=== PATIENT | male | born 1940 | race Caucasian/White ===

== ENCOUNTER 2021-07-25 06:45 | Inpatient (IN) | payer OTHER, MEDICARE ==
[2021-07-25 07:22] LABS: Protime INR 1.13
[2021-07-25] MEDS ORDERED: FENTANYL CITR 100 MCG/2 ML ONE (07:34)
[2021-07-25] MEDS ORDERED: ASPIRIN 81 MG CHEWABLE TABLET ONE (07:34)
[2021-07-25] MEDS ORDERED: ONDANSETRON 4 MG/2 ML VIAL ONE (07:34)
[2021-07-25 07:37] LABS: ALT/SGPT 27 U/L (12-78); AST/SGOT 15 U/L (15-37); Albumin 3.7 g/dL (3.4-5.0); Alkaline Phosphatase 74 U/L (45-117); BUN Blood Urea Nitrogen 20 mg/dL (7-18); Bicarbonate 28 mmol/L (21-32); Bilirubin Direct 0.1 mg/dL (0-0.2); Bilirubin Total 0.6 mg/dL (0.2-1.0); Glucose Level 161 mg/dL (74-106); Magnesium 2.3 mg/dL (1.8-2.4); NT PRO-BNP 110 pg/mL (<450); Potassium 3.5 mmol/L (3.5-5.1); Protein, Total 7.4 g/dL (6.4-8.2); Sodium Level 143 mmol/L (136-145); Troponin (Emerg Dept Use Only) < 0.02 ng/mL (0.0-0.045)
[2021-07-25 07:41] LABS: Absolute Lymphocytes (CBC) 1.8 K/uL (0.7-4.9); Basophils % 0.8 % (0-1.3); Hematocrit 41.9 % (39.6-49.0); Lymphocytes % 14.5 % (15.3-44.8); MPV 8.5 fL (7.6-11.3); RBC Red Blood Cell Count 4.63 M/uL (4.33-5.43)
[2021-07-25] MEDS ORDERED: NA CHLORIDE 0.9% 500 ML ONE (08:10)
--- NOTE | 2021-07-25 08:36 | RAD REPORT ---
EXAM DESCRIPTION: CT - Angio Aorta For Dissection - 07/25/2021 8:13 am CLINICAL HISTORY: Chest pain radiating to the back. Chest pain;Dyspnea COMPARISON: Abdomen Pelvis W/Wo Contrast dated 01/31/2021; Abdomen Pelvis W Contrast dated 020 TECHNIQUE: CT angiography of the aorta was performed with MIPs. All CT scans are performed using dose optimization technique as appropriate and may include automated exposure control or mA/KV adjustment according to patient size. FINDINGS: A left aortic arch is present with normal branching pattern of the great vessels.No acute aortic finding is seen such as aneurysm, penetrating ulcer or dissection. The celiac axis, SMA, ZAHRA and renal arteries are patent. No evidence of pulmonary embolism. Small hiatal hernia. Mild emphysema is present throughout the lungs. Mild interstitial lung infiltrate is seen in the left lung base. Small pleural based opacity is seen in the lateral aspect of the lingula measuring 17 mm. Small amount of left pleural fluid is evident. The liver demonstrates no focal mass or biliary dilatation.The spleen, pancreas, adrenal glands are w ithin normal limits for arterial phase imaging. Multiple large bilateral renal cysts are present the largest on the right measuring 18 cm. Left midpo le laterally there is a more complex appearing cortical lesion measuring 5.4 cm which has mildly incr eased in size since 01/31/2021 and also increased in size mildly since 08/12/2020. Although complex c yst is a possibility the internal appearance of the lesion is heterogenous. Recommend further evaluat ion of this with nonemergent follow-up MRI of the kidneys with contrast. No bowel obstruction, free fluid or abscess.Prostate gland is mildly prominent and projects into the bladder base.No pathologic enlarged lymphadenopathy identified.Small bilateral fat containing inguina l hernias. Diffuse osteopenia. Prominent lumbosacral degenerative spondylosis. IMPRESSION: No acute aortic finding is demonstrated. Small left pleural effusion and left lower lung opacity may represent infiltrate/ infection. Pleural based opacity in the lingula (17 mm) warrants followup assessment with CT chest in 6 months. Bilateral renal cysts are again seen. Complex cystic lesion involving the lateral left midpole shows slow interval growth over the last [address]. While complex cyst is favored, kishore mmend nonemergent MRI of the kidneys with contrast for follow-up evaluation.
[2021-07-25 08:42] LABS: SARS-COV-2 RT PCR NEGATIVE (NEGATIVE)
--- NOTE | 2021-07-25 08:49 | EDPHYS ---
Physician Documentation [facility] Name: Jose West Age: 80 yrs Sex: Male : 1940 Arrival Date: 07/25/2021 Time: 06:49 Bed 5 Private MD: ED Physician Jillian Giron HPI: 07/25 07:30 This 80 yrs old Male presents to ER via Wheelchair with complaints of Chest jr8 Pain/Breathing Difficulty. 07:31 The patient or guardian reports chest pain that is located primarily in the anterior jr8 chest wall, left. Onset: acutely, last night, and became persistent. The pain does not radiate. Associated signs and symptoms: Pertinent positives: shortness of breath. The chest pain is described as sharp. Duration: The patient or guardian reports multiple episodes, that are intermittent. Modifying factors: The symptoms are alleviated by nothing. the symptoms are aggravated by deep breath. Severity of pain: At its worst the pain was moderate in the emergency department the pain is unchanged. The patient has not experienced similar symptoms in the past. The patient has not recently seen a physician. Historical: - Allergies: 07:10 No Known Allergies; lp1 - Home Meds: 07:10 finasteride 5 mg oral tab 1 tab once daily [Active]; Triamterene-Hydrochlorothiazid lp1 Oral [Active]; atorvastatin 20 mg oral tab 1 tab once daily [Active]; terazosin 10 mg oral cap 1 cap once daily [Active]; amlodipine 5 mg tab twice a day [Active]; carvedilol 3.125 mg oral tab [Active]; aspirin 81 mg Oral TbEC 1 tab once daily [Active]; famotidine 20 mg Oral tab 1 tab once daily [Active]; - PMHx: 07:10 Kidney cysts; Prostate cancer; lp1 - PSHx: 07:10 hernia sx; back sx; knee sx; lp1 - Immunization history:: Adult Immunizations up to date, Client reports receiving the 2nd dose of the Covid vaccine. - Social history:: Smoking status: Patient denies any tobacco usage or history of. ROS: 07:31 Eyes: Negative for injury, pain, redness, and discharge, ENT: Negative for injury, jr8 pain, and discharge, Neck: Negative for injury, pain, and swelling, Abdomen/GI: Negative for abdominal pain, nausea, vomiting, diarrhea, and constipation, Back: Negative for injury and pain, MS/Extremity: Negative for injury and deformity, Skin: Negative for injury, rash, and discoloration, Neuro: Negative for headache, weakness, numbness, tingling, and seizure. 07:31 Cardiovascular: Positive for chest pain, Negative for edema, orthopnea, palpitations, paroxysmal nocturnal dyspnea. 07:31 Respiratory: Positive for shortness of breath, Negative for cough, sputum production, wheezing. Exam: 07:31 Eyes: Pupils equal round and reactive to light, extra-ocular motions intact. Lids and jr8 lashes normal. Conjunctiva and sclera are non-icteric and not injected. Cornea within normal limits. Periorbital areas with no swelling, redness, or edema. ENT: Nares patent. No nasal discharge, no septal abnormalities noted. Tympanic membranes are normal and external auditory canals are clear. Oropharynx with no redness, swelling, or masses, exudates, or evidence of obstruction, uvula midline. Mucous membranes moist. Neck: Trachea midline, no thyromegaly or masses palpated, and no cervical lymphadenopathy. Supple, full range of motion without nuchal rigidity, or vertebral point tenderness. No Meningismus. 07:31 Cardiovascular: Regular rate and rhythm with a normal S1 and S2. No gallops, murmurs, or rubs. Normal PMI, no JVD. No pulse deficits. 07:31 Abdomen/GI: Soft, non-tender, with normal bowel sounds. No distension or tympany. No guarding or rebound. No evidence of tenderness throughout. Back: No spinal tenderness. No costovertebral tenderness. Full range of motion. Skin: Warm, dry with normal turgor. Normal color with no rashes, no lesions, and no evidence of cellulitis. MS/ Extremity: Pulses equal, no cyanosis. Neurovascular intact. Full, normal range of motion. Neuro: Awake and alert, GCS 15, oriented to person, place, time, and situation. Cranial nerves II-XII grossly intact. Motor strength 5/5 in all extremities. Sensory grossly intact. 07:31 Constitutional: The patient appears alert, awake, uncomfortable. 07:31 Chest/axilla: Inspection: normal, Palpation: tenderness, that is mild, of the left lateral anterior chest, that partially reproduces the patient's complaints. 07:31 Respiratory: the patient does not display signs of respiratory distress, Respirations: tachypnea, that is mild, Breath sounds: are clear throughout, no bronchial sounds, no decreased breath sounds, no rales, rhonchi, no stridor, no wheezing. Vital Signs: 07:07 BP 148 / 81; Pulse 74; Resp 24; Pulse Ox 95% on R/A; Weight 113.4 kg (R); Height 6 ft. lp1 0 in. (182.88 cm); Pain 8/10; 07:27 BP 134 / 53; Pulse 69; Resp 25 S; Temp 97.8(TE); Pulse Ox 98% on 2 lpm NC; Pain 6/10; jl7 09:00 BP 117 / 60; Pulse 81; Resp 17; Pulse Ox 98% on 2 lpm NC; jl7 07:07 Body Mass Index 33.91 (113.40 kg, 182.88 cm) lp1 MDM: 06:51 Patient medically screened. jr8 08:47 The patient was given aspirin in the Emergency Department. Data reviewed: vital signs, 8 nurses notes, lab test result(s), EKG, radiologic studies, CT scan, plain films. Data interpreted: Pulse oximetry: on room air is 94 %. Interpretation: borderline. Counseling: I had a detailed discussion with the patient and/or guardian regarding: the historical points, exam findings, and any diagnostic results supporting the discharge/admit diagnosis, lab results, radiology results, the need for further work-up and treatment in the hospital. ED course: Discussed with patient that his left-sided lung pain and side pain appears to be secondary to pleurisy from pneumonia. Patient's pain has improved with medication but he continues to look uncomfortable and continues to remain tachypneic. As such I explained to patient that we better to put him into the hospital to continue to monitor him in his breathing status. Patient good with this at this time.. 07/25 07:02 Order name: Basic Metabolic Panel; Complete Time: :8 07/25 07:02 Order name: CBC with Diff; Complete Time: 07:42 8 07/25 07:02 Order name: LFT's; Complete Time: 8 07/25 07:02 Order name: Magnesium; Complete Time: : 07/25 07:02 Order name: NT PRO-BNP; Complete Time: 07:41 07/25 07:02 Order name: PT-INR; Complete Time: 07:30 07/25 07:02 Order name: Troponin (emerg Dept Use Only); Complete Time: 07:41 07/25 07:02 Order name: XRAY Chest (1 view); Complete Time: 10:16 07/25 07:41 Order name: CT Aorta for Dissection; Complete Time: 08:38 07/25 07:48 Order name: COVID-19/FLU A+B/RSV; Complete Time: 08:43 EDMS 07/25 07:02 Order name: EKG; Complete Time: 07:03 07/25 07:02 Order name: Cardiac monitoring; Complete Time: 07:04 07/25 07:02 Order name: EKG - Nurse/Tech; Complete Time: 07:04 07/25 07:02 Order name: IV Saline Lock; Complete Time: 07:04 07/25 07:02 Order name: Labs collected and sent; Complete Time: 07:04 07/25 07:02 Order name: O2 Per Protocol; Complete Time: 07:04 07/25 07:02 Order name: O2 Sat Monitoring; Complete Time: 07:04 07/25 08:58 Order name: Diet Heart Healthy; Complete Time: 08:59 jl7 Administered Medications: 07:08 Drug: Zofran (Ondansetron) 4 mg Route: IVP; Site: left antecubital; 7 07:28 Follow up: Response: No adverse reaction 7 07:10 Drug: fentaNYL (PF) 50 mcg Route: IVP; Site: left antecubital; jl7 07:28 Follow up: Response: No adverse reaction; Pain is decreased jl7 07:21 Drug: Aspirin Chewable Tablet 324 mg Route: PO; jl7 07:28 Follow up: Response: No adverse reaction 7 07:45 Drug: NS 0.9% 500 ml Route: IV; Rate: bolus; Site: left antecubital; jl7 08:57 Follow up: Response: No adverse reaction; IV Status: Completed infusion; IV Intake: jl7 500ml 08:57 Drug: LevaQUIN (levofloxacin) 750 mg Route: PO; jl7 10:27 Follow up: Response: No adverse reaction jl7 10:43 Drug: fentaNYL (PF) 50 mcg Route: IVP; Site: left antecubital; jl7 11:10 Follow up: Response: No adverse reaction; Pain is decreased jl7 Disposition: 07/26 08:48 Co-signature as Attending Physician, Jillian Giron MD I agree with the assessment and sp3 plan of care. Disposition Summary: 07/25/21 08:48 Hospitalization Ordered Hospitalization Status: Inpatient Admission 8 Provider: Sharita Stephens Location: Telemetry/MedSurg (Inpatient) jr8 Condition: Fair jr8 Problem: new jr8 Symptoms: have improved jr8 Bed/Room Type: Standard [facility] Room Assignment: 225(07/25/21 13:24) ss Diagnosis - Pneumonia, unspecified organism jr8 - Pleurisy jr8 - Pleural effusion in other conditions classified elsewhere jr8 - Dyspnea jr8 Forms: - Medication Reconciliation Form jr8 - SBAR form jr8 Signatures: Dispatcher [employer] EDMS Fatoumata Seo, RN RN ss Regla Marley RN RN lp1 Roberth Flor PA PA jr8 Clara Morales RN RN jl7 Jillian Giron MD MD sp3 Corrections: (The following items were deleted from the chart) 07/25 07:49 07:33 CORONAVIRUS+BRZ ordered. EDMS EDMS 13:23 08:48 jr8 13:24 13:23 224 [facility]
--- NOTE | 2021-07-25 08:49 | ER ---
Nurse's Notes [facility] Name: Jose West Age: 80 yrs Sex: Male : 1940 Arrival Date: 07/25/2021 Time: 06:49 Bed 5 Private MD: Diagnosis: Pneumonia, unspecified organism;Pleurisy;Pleural effusion in other conditions classified elsewhere;Dyspnea Presentation: 07/25 07:07 Chief complaint: Patient states: Reports pain to left upper chest, worse with movement lp1 and breathing; States cleaning ceiling yesterday and stretching arms; denies any injury. Coronavirus screen: At this time, the client does not indicate any symptoms associated with coronavirus-19. Ebola Screen: No symptoms or risks identified at this time. Initial Sepsis Screen: Does the patient meet any 2 criteria? No. Patient's initial sepsis screen is negative. Does the patient have a suspected source of infection? No. Patient's initial sepsis screen is negative. Risk Assessment: Do you want to hurt yourself or someone else? Patient reports no desire to harm self or others. Onset of symptoms was July 25, 2021. 07:07 Method Of Arrival: Wheelchair lp1 07:07 Acuity: AMY 3 lp1 Historical: - Allergies: 07:10 No Known Allergies; lp1 - Home Meds: 07:10 finasteride 5 mg oral tab 1 tab once daily [Active]; Triamterene-Hydrochlorothiazid lp1 Oral [Active]; atorvastatin 20 mg oral tab 1 tab once daily [Active]; terazosin 10 mg oral cap 1 cap once daily [Active]; amlodipine 5 mg tab twice a day [Active]; carvedilol 3.125 mg oral tab [Active]; aspirin 81 mg Oral TbEC 1 tab once daily [Active]; famotidine 20 mg Oral tab 1 tab once daily [Active]; - PMHx: 07:10 Kidney cysts; Prostate cancer; lp1 - PSHx: 07:10 hernia sx; back sx; knee sx; lp1 - Immunization history:: Adult Immunizations up to date, Client reports receiving the 2nd dose of the Covid vaccine. - Social history:: Smoking status: Patient denies any tobacco usage or history of. Screenin:00 Abuse screen: Denies threats or abuse. Denies injuries from another. Nutritional jl7 screening: No deficits noted. Tuberculosis screening: No symptoms or risk factors identified. Fall Risk IV access (20 points). Total Salazar Fall Scale indicates No Risk (0-24 pts). Assessment: 07:00 General: Appears in no apparent distress. uncomfortable, Behavior is cooperative, jl7 appropriate for age, anxious. Pain: Complains of pain in left lateral anterior chest and left breast Pain does not radiate. Pain currently is 8 out of 10 on a pain scale. Quality of pain is described as stabbing, Pain began 1 day ago. Is continuous. Neuro: Level of Consciousness is awake, alert, obeys commands, Oriented to person, place, time, situation, Speech is normal. Cardiovascular: Patient's skin is warm and dry. Rhythm is regular Chest pain is described as Pain is 8 out of 10 on a pain scale. quality is stabbing, is located in left anterior chest wall began 1 day ago episodes are continuous. Respiratory: Airway is patent Respiratory effort is even, labored, Respiratory pattern is symmetrical, tachypnea. GI: Abdomen is round distended. Derm: Skin is pink, warm \T\ dry. 08:00 Reassessment: Patient appears in no apparent distress at this time. Patient and/or jl7 family updated on plan of care and expected duration. Pain level reassessed. Patient is alert, oriented x 3, equal unlabored respirations, skin warm/dry/pink. Patient states symptoms have improved. 09:00 Reassessment: Patient appears in no apparent distress at this time. No changes from jl7 previously documented assessment. Patient and/or family updated on plan of care and expected duration. Pain level reassessed. Patient is alert, oriented x 3, equal unlabored respirations, skin warm/dry/pink. 10:00 Reassessment: Patient appears in no apparent distress at this time. No changes from jl7 previously documented assessment. Patient and/or family updated on plan of care and expected duration. Pain level reassessed. Patient is alert, oriented x 3, equal unlabored respirations, skin warm/dry/pink. 10:42 Reassessment: Pt reports increasing pain, requesting more pain medication, ERP notified jl7 and gave VO for 50 mcg Fentanyl IVP, pt medicated as ordered. Vital Signs: 07:07 BP 148 / 81; Pulse 74; Resp 24; Pulse Ox 95% on R/A; Weight 113.4 kg (R); Height 6 ft. lp1 0 in. (182.88 cm); Pain 8/10; 07:27 BP 134 / 53; Pulse 69; Resp 25 S; Temp 97.8(TE); Pulse Ox 98% on 2 lpm NC; Pain 6/10; jl7 09:00 BP 117 / 60; Pulse 81; Resp 17; Pulse Ox 98% on 2 lpm NC; jl7 07:07 Body Mass Index 33.91 (113.40 kg, 182.88 cm) lp1 ED Course: 06:49 Patient arrived in ED. wm 06:51 Roberth Flor PA is PHCP. jr8 06:51 Raheem Hightower MD is Attending Physician. jr8 07:00 Patient has correct armband on for positive identification. Placed in gown. Bed in low jl7 position. Call light in reach. Side rails up X 1. wreath and garland maker on. Pulse ox on. NIBP on. 07:03 Clara Morales RN is Primary Nurse. jl7 07:04 XRAY Chest (1 view) Sent. jl7 07:04 Inserted saline lock: 20 gauge in left antecubital area, using aseptic technique. Blood ms4 collected. 07:05 Initial lab(s) drawn, by ED staff, sent to lab. EKG done, by ED staff, reviewed by Roberth JONES. 07:10 Triage completed. lp1 07:12 XRAY Chest (1 view) In Process Unspecified. EDMS 07:29 Arm band placed on right wrist. jl7 07:41 Attending Physician role handed off by Raheem Hightower MD jr8 07:41 Jillian Giron MD is Attending Physician. jr8 08:12 CT Aorta for Dissection In Process Unspecified. EDMS 08:48 Sharita Stephens MD is Hospitalizing Provider. jr8 13:32 No provider procedures requiring assistance completed. Patient admitted, IV remains in jl7 place. intact, No redness/swelling at site. Administered Medications: 07:08 Drug: Zofran (Ondansetron) 4 mg Route: IVP; Site: left antecubital; jl7 07:28 Follow up: Response: No adverse reaction jl7 07:10 Drug: fentaNYL (PF) 50 mcg Route: IVP; Site: left antecubital; jl7 07:28 Follow up: Response: No adverse reaction; Pain is decreased jl7 07:21 Drug: Aspirin Chewable Tablet 324 mg Route: PO; jl7 07:28 Follow up: Response: No adverse reaction jl7 07:45 Drug: NS 0.9% 500 ml Route: IV; Rate: bolus; Site: left antecubital; jl7 08:57 Follow up: Response: No adverse reaction; IV Status: Completed infusion; IV Intake: jl7 500ml 08:57 Drug: LevaQUIN (levofloxacin) 750 mg Route: PO; jl7 10:27 Follow up: Response: No adverse reaction jl7 10:43 Drug: fentaNYL (PF) 50 mcg Route: IVP; Site: left antecubital; jl7 11:10 Follow up: Response: No adverse reaction; Pain is decreased jl7 Intake: 08:57 IV: 500ml; Total: 500ml. jl7 Outcome: 08:48 Decision to Hospitalize by Provider. jr8 13:32 Admitted to Tele accompanied by [facility], via wheelchair, room 225, with chart, Report jl7 called to MYRNA Rees 13:32 Condition: stable 13:32 Discharge instructions given to patient, family, Instructed on the need for admit, Demonstrated understanding of instructions. 13:54 Patient left the ED. jl7 Signatures: Dispatcher [employer] EDRegla Us, RN RN lp1 Roberth Flor PA PA jr8 Clara Morales RN RN jl7 Saba Quintana Mikaela RN RN ms4
[2021-07-25] MEDS ORDERED: levoFLOXacin 750 MG TAB ONE (09:19)
--- NOTE | 2021-07-25 09:54 | RAD REPORT ---
EXAM DESCRIPTION: RAD - Chest Single View - 07/25/2021 7:12 am CLINICAL HISTORY: CHEST PAIN Chest pain. COMPARISON: CHEST SINGLE VIEW dated 12/03/2013; CHEST SINGLE VIEW dated 12/02/2013; CHEST PA AND LAT 2 V IEW dated 05/20/2012; CHEST PA AND LAT 2 VIEW dated 01/22/2008 FINDINGS: Portable technique limits examination quality. Mild interstitial pulmonary edema. The heart is mildly enlarged in size. No displaced fractures. IMPRESSION: Mild CHF.
[2021-07-25] MEDS ORDERED: ALBUTEROL 2.5 MG/3 ML NEB SOL NEB PRN (14:20)
[2021-07-25] MEDS ORDERED: IPRATROPIUM BROM 0.5MG/2.5ML NEB PRN (14:20)
[2021-07-25] MEDS ORDERED: ONDANSETRON 4 MG/2 ML VIAL IV PRN (14:20)
[2021-07-25] MEDS: MORPHINE 4 MG/ML SYR IV PRN ×2 (15:10→19:58)
[2021-07-25] MEDS: ENOXAPARIN 40 MG/0.4 ML SQ SCH (15:11)
[2021-07-25 15:56] VITALS: BMI 33.9
[2021-07-25] MEDS ORDERED: INFLUENZA VACCINE (for 6+ mo) 0.5 ML DOSE IMVAC ONE (18:00)
[2021-07-26] MEDS: MORPHINE 4 MG/ML SYR IV PRN ×2 (01:24→06:27)
--- NOTE | 2021-07-26 04:20 | HP ---
Date of Admission: 07/25/2021 Chief Complaint: Chest pain. History Of Present Illness: This is an 80-year-old male patient who was working around his house yes terday, did not have any fall or injury and all of a sudden started to have left-sided chest pain in the lateral chest wall area. No rash. He thinks he might have had low-grade fever last night. His pain has been intermittent, mostly on, then off as he describes and pain does tend to get worse with deep breathing. He has little cough, not coughing up any mucus. After his symptoms got worse, he ca me into the emergency room today after he was evaluated in the ER and was contacted requesting admiss ion to the hospital. When I saw him this evening, he was feeling much better compared to earlier tojorge alberto ay. Allergies: NO KNOWN ALLERGIES. Medications: 1.Amlodipine 5 mg 2 times a day. 2.Aspirin 81 mg daily. 3.Atorvastatin 20 mg daily. 4.Carvedilol 3.125 mg 2 times a day. 5.Famotidine 20 mg daily as needed for heartburn, indigestion. 6.Finasteride 5 mg daily. 7.Triamterene/hydrochlorothiazide 37.5/25 mg, takes 1 tablet by mouth daily in morning. 8.Terazosin 10 mg daily at bedtime. Review of Systems: Cardiovascular: As mentioned above. Respiratory: As mentioned above. All other systems reviewed and negative. Past Medical History: Significant for hypertension, hyperlipidemia, which is mixed, gastroesophageal reflux disease, prostate cancer, and has not received any treatment so far for it, osteoarthritis at multiple sites and skin cancer. Also, chronic kidney disease. Past Surgical History: Tonsillectomy, hernia repair and prostate biopsy, back surgery, knee surgery. Family History: Brother had thyroid cancer, sister had breast cancer and heart disease. Social History: Prior history of smoking, not at present time. Use of alcohol, negative. Immunization History: Patient had his first dose of COVID-19 vaccine on December 27, 2020 and second do se on January 17, 2021. Physical Examination: Vital Signs: Temperature 98.6, pulse 86, respiratory rate 16, blood pressure 157/70, oxygen saturati on 95%, height 6 feet, weight 250 pounds. General: Awake, alert, oriented, not in distress. HEENT: Head atraumatic, normocephalic. Conjunctivae nonerythematous. Sclerae white. Mouth, no thr ush or edema noted. Ears/Nose, no mass, lesion, discharge noted. Neck: Supple. No JVD, lymph nodes, bruit, thyromegaly noted. Lungs: Bilateral good equal air entry. Clear to auscultation except diminished air entry in the lef t lower lung field. Not using accessory muscles of respiration. Heart: Normal heart sounds, no murmur or gallop. Abdomen: Soft, bowel sounds normal. No guarding, rigidity, tenderness, mass, hepatosplenomegaly, dis tention, or bruit noted. Extremities: No leg edema. No calf tenderness. Skin: No rash, ulcer, cellulitis. Lymphatics: No lymph node enlargement in neck, supraclavicular, infraclavicular region. Neuro: No focal neurological deficit. Chest: Unremarkable. External Genitalia: Deferred. Rectal: Deferred. Laboratory Data: White count 12.7, hemoglobin 14, platelets . Sodium 143, potassium 3.5, chloride 108, bicarb 28, BUN 20, creatinine 1.33 kg. EGFR 51, glucose 161. Liver function tests unr emarkable. Troponin less than 0.02 x2. Influenza A and B, RSV and COVID-19 test negative. CAT scan of the chest per PE protocol negative for pulmonary embolism, but shows evidence of pneumoni a. Impression: 1.Pneumonia. 2.Pleurisy. 3.Chronic kidney disease, stage IIIA. 4.Hypertension. 5.Mixed hyperlipidemia. 6.Gastroesophageal reflux disease. Plan: Admit patient to hospital for further evaluation and management of this problem. The patient is appropriate for inpatient and is expected to spend 2 midnights in hospital. Currently, he is on 2 L nasal cannula oxygen. We will continue that. Hopefully, we can wean off oxygen, maybe by tomorro w. Continue current antibiotic, which is Levaquin. Continue DVT prophylaxis. Home medications will be continued per order and ambulation was encouraged. I will see him tomorrow for followup and deta ils and plan of treatment discussed with him. JOHANNY/MODL Voice ID: [id number]
[2021-07-26 05:51] LABS: Absolute Lymphocytes (CBC) 1.2 K/uL (0.7-4.9); Basophils % 0.6 % (0-1.3); Hematocrit 37.8 % (39.6-49.0); Lymphocytes % 9.9 % (15.3-44.8); MPV 7.9 fL (7.6-11.3); RBC Red Blood Cell Count 4.21 M/uL (4.33-5.43)
[2021-07-26 06:20] LABS: Potassium 3.5 mmol/L (3.5-5.1)
[2021-07-26] MEDS: HYDROCODONE/APAP 5/325 MG TAB PO SCH ×2 (07:47→20:43)
[2021-07-26] MEDS ORDERED: Levofloxacin500mg IV 500 MG/100 ML BAG IV SCH (09:00)
[2021-07-26] MEDS: ACETAMINOPHEN 500 MG TAB PO PRN (13:37)
[2021-07-26] MEDS: ENOXAPARIN 40 MG/0.4 ML SQ SCH (17:01)
[2021-07-26] MEDS ORDERED: PNEUMOCOCCAL VACCINE 0.5 ML IMVAC ONE (18:00)
[2021-07-26] MEDS: AMLODIPINE 5 MG TAB PO SCH (20:45)
[2021-07-26] MEDS ORDERED: ATORVASTATIN 20 MG TAB PO SCH (21:00)
--- NOTE | 2021-07-27 00:22 | PN ---
Date of Progress Note: 07/26/2021 Subjective: The patient was seen this morning for followup. No new complaints or problems reported by him. His left-sided pleuritic chest pain is better. Objective: VITAL SIGNS: Reviewed. HEENT: Examination unremarkable. LUNGS: Clear to auscultation. Diminished air entry in the left lung base, not in respiratory distre ss. HEART: Heart sounds normal. ABDOMEN: Soft, bowel sounds normal. No guarding, rigidity, tenderness, distention. EXTREMITIES: No leg edema. Laboratory Data: White count 11.8, hemoglobin 12.7, platelets 266. Sodium 139, potassium 3.5, chlor holley 105, bicarb 26, BUN 29, creatinine 1.27, glucose 130. Impression: 1.Pneumonia. 2.Hypertension. 3.Hyperlipidemia. 4.Anemia, unspecified. Plan: We will continue current antibiotics. Continue current pain medication. We will start him on ibuprofen per order, and I will see him tomorrow for followup. Ambulation was encouraged, possible discharge to go home tomorrow depending on his condition. JOHANNY/MODL Voice ID: [id number] Report ID: [id number]
[2021-07-27] MEDS: ACETAMINOPHEN 500 MG TAB PO PRN (04:21)
[2021-07-27 04:42] VITALS: O2SAT 91
[2021-07-27] MEDS ORDERED: ALBUTEROL INHALER 60 PUFF/8 GM IH SCH (08:00)
[2021-07-27] MEDS ORDERED: FINASTERIDE 5 MG TAB PO SCH (09:00)
[2021-07-27] MEDS ORDERED: ASPIRIN EC 81 MG TAB PO SCH (09:00)
[2021-07-27] MEDS ORDERED: FAMOTIDINE 20 MG TAB PO SCH (09:00)
[2021-07-27] MEDS ORDERED: MAXZIDE (HCTZ 25/TRIAMTERENE 37.5MG) TAB PO SCH (09:00)
[2021-07-27] MEDS ORDERED: TERAZOSIN HCL 5 MG CAP PO SCH (09:00)
[2021-07-27] MEDS ORDERED: carvediloL 3.125 MG TAB PO SCH (09:00)
[2021-07-27] MEDS ORDERED: PNEUMOCOCCAL VACCINE 0.5 ML IMVAC ONE (09:05)
[2021-07-27] MEDS: HYDROCODONE/APAP 5/325 MG TAB PO SCH (09:08)
[2021-07-27] MEDS: AMLODIPINE 5 MG TAB PO SCH (09:09)
[2021-07-27 09:12] VITALS: BP 142/65
[2021-07-27 09:14] VITALS: TEMP 99
--- NOTE | 2021-07-28 07:24 | DS ---
Date of Discharge: 07/27/2021 History Of Present Illness: The patient was seen this morning for followup. No new complaints or pr oblems reported by the patient. Lying in bed, not in distress. His pleuritic chest pain is much bet ter than before. Physical Examination: Vital Signs: Reviewed. HEENT: Unremarkable. Lungs: Clear to auscultation. Heart: Sounds normal. Abdomen: Soft. Bowel sounds normal. No guarding, rigidity, tenderness, distention. Extremities: No leg edema. Laboratory Data: Upon admission; white count 12.7, hemoglobin 14, platelets 301. Yesterday; white c ount 11.8, hemoglobin 12.7, platelets 266. Upon admission; sodium 143, potassium 3.5, chloride 108, bicarb 28, BUN 20, creatinine 1.33, glucose 161. Liver function tests unremarkable. Troponin less t echeverria 0.02 x3. Yesterday; BUN 29, creatinine 1.27, sodium 139, potassium 3.5, chloride 105, bicarb 26, glucose 130. Hospital Course: An 80-year-old pleasant male patient, admitted to the hospital with complaints of c hest pain. Please see dictated H and P for more information. The patient was admitted to the hospit al after evaluation in the emergency room with left-sided chest pain. Further evaluation in the [facility] room including CAT scan revealed that the patient did not have any pulmonary embolism, but he h ad pneumonia and small pleural effusion on the left side. He was admitted to the hospital. IV antib iotic, Levaquin was given and pain medication was started. Home medications continued. The patient did require oxygen 2 L per minute nasal cannula at the beginning. We were able to wean off his oxyge n this morning. When I saw him, he was on 1 L of oxygen per nasal cannula. Oxygen was discontinued and his room air oxygen saturation was 91%. The patient was discharged to go home in stable conditio n with following discharge medication and instructions. Discharge Diagnoses: 1.Pneumonia. 2.Pleural effusion, left, small. 3.Pleurisy. 4.Chronic kidney disease, stage 3A. 5.Hypertension. 6.Mixed hyperlipidemia. 7.Gastroesophageal reflux disease. Discharge Medications And Instructions: 1.Continue prior home medications. 2.Take Levaquin 500 mg daily for 1 week. 3.Follow up at my office on 08/02/2021 at 10 a.m. 4.Albuterol inhaler 2 puffs by mouth 3 times a day. 5.Use haza-vie-vhoqhpw Advil 200 mg, take 2 tablets by mouth 3 times a day after meal for 1 week. JOHANNY/MODL Voice ID: [id number] Report ID: [id number]
== END 2021-07-27 09:48 | disposition home or self-care (01) | DRG 195 ==
LOC: ER 06:45 → ERHOLD 10:43 → 2ND 13:32
PROVIDERS: ADMIT Internal Medicine; ATTEND Internal Medicine
DX: J18.9 Pneumonia, unspecified organism (principal); I12.9 Hypertensive chronic kidney disease with stage 1 through stage 4 chronic kidney disease, or unspecified chronic kidney disease; N18.31 Chronic kidney disease, stage 3a; M19.90 Unspecified osteoarthritis, unspecified site; E78.2 Mixed hyperlipidemia; D64.9 Anemia, unspecified; K21.9 Gastro-esophageal reflux disease without esophagitis; E78.5 Hyperlipidemia, unspecified; R09.1 Pleurisy; Z79.82 Long term (current) use of aspirin; Z79.899 Other long term (current) drug therapy; Z85.46 Personal history of malignant neoplasm of prostate; Z85.828 Personal history of other malignant neoplasm of skin; Z20.822 Contact with and (suspected) exposure to COVID-19; Z23 Encounter for immunization
CPT/HCPCS: 0241U; 36415; 71045; 71275; 74175; 80048; 80076; 82947; 83735; 83880; 84484; 85025; 85610; 90471; 90732; 93005; 94760; 96361; 96374; 96375; 99285; J1650; J2405; J3010; J7040; Q9967

== ENCOUNTER 2023-04-27 08:48 | Day surgery (SDC) | payer OTHER, MEDICARE ==
[2023-04-27] MEDS ORDERED: Ringers Lactate 1,000 ML IV ONE (09:20)
[2023-04-27] MEDS ORDERED: LIDOCAINE HCL/EPINEPHRINE 20 ML MDV ONE (11:15)
[2023-04-27] MEDS ORDERED: FENTANYL CITR 100 MCG/2 ML ONE (11:34)
[2023-04-27] MEDS ORDERED: propofoL 200 MG/20 ML VIAL IV ONE (11:34)
[2023-04-27] MEDS ORDERED: LIDOCAINE 2% MPF 5 ML VIAL ONE (11:35)
[2023-04-27] MEDS ORDERED: ONDANSETRON 4 MG/2 ML VIAL ONE (11:35)
[2023-04-27] MEDS ORDERED: GLYCOPYRROLATE 0.2 MG/ML SYR ONE (13:01)
--- NOTE | 2023-04-27 13:25 | EKG ---
Test Date: 2023-04-26 Test Time: 15:40:35 Gum Cook: OCHOA MEASUREMENT RESULTS: Intervals: Rate: 64 TX: 188 QRSD: 96 QT: 406 QTc: 418 [place]: P: 60 TX: 188 QRS: 32 T: 54 INTERPRETIVE STATEMENTS: Normal sinus rhythm Normal ECG Compared to ECG 07/25/2021 07:00:40 Myocardial infarct finding no longer present Electronically Signed On 04-27-23 13:24:25 CDT by Rayray De Souza
--- NOTE | 2023-04-27 13:43 | P.OP ---
Cota: NONE,NONE Preoperative diagnosis: Neoplasm uncertain behavior, suspicious for malignancy Postoperative diagnosis: Squamous cell carcinoma Primary procedure: Wide local excision with margins, 3 cm x 3 cm Secondary procedure: Closure by local tissue rearrangement Anesthesia: General via LMA Estimated blood loss: 10 mL Specimen: Left neck, suture 12:00 Findings: Negative margins on frozen section Operative Technique: After adequate plane of anesthesia, the head was turned towards the right for exposure of the left neck. There was a 2 cm round firm mass located behind the earlobe on the upper portion of the neck. The skin surrounding this was injected with 6 and half milliliters of 1% lidocaine with epinephrine. The ear, neck and left face were prepped with Betadine and draped in a sterile fashion. A 5 mm margin was designed around the gross edge of the tumor and a 15 blade scalpel was used to incise through the skin and subcutaneous tissues on the planned incision. A suture was placed on the anteriormost aspect of the lesion, indicating 12:00. A similar suture was placed on the patient aspect of the wound. Bovie electrocautery was then used to incise the subcutaneous tissues, taking care to stay deep to the tumor. After complete removal, the specimen was sent to pathology for frozen section analysis. The resulting defect measured 3 x 3.1cm. There was a small to moderate size blood vessel with an adjacent lymph node in the center of the surgical defect. Due to concern for malignancy, this central lymph node was carefully dissected and removed. The blood vessel was clamped and 5 to avoid bleeding. This lymph node was not specifically enlarged but was easy to remove and given the size of the mass and rapid development, I was concerned about potential risk for metastases. This lymph node was sent for permanent section only. After margins were confirmed negative, the surrounding areas were widely undermined using Bovie electrocautery. A rotational flap was created by incising the skin along an existing skin crease of the neck. This 3 x 3 cm triangle based inferiorly and anteriorly was then rotated into the wound. A small burrows triangle was excised on the superior posterior aspect as well as an additional burrows triangle removed from the posterior aspect of the earlobe. This flap was then secured in a deep fashion using 3-0 Vicryl sutures. The skin was closed in a running fashion using 5-0 fast absorbing gut. After cleaning of the skin, triple antibiotic ointment was applied to the incision and a pressure dressing was applied using gauze and Medipore tape. The procedure was concluded and the patient was returned to care of anesthesia for awakening extubation in the operating room which proceeded without difficulty. Complications: None Implants: None Fluids & blood products: See anesthesia record Transferred to: Recovery Room Condition: Good
[2023-04-27 14:56] VITALS: BP 134/44; TEMP 96.8; O2SAT 94
== END 2023-04-27 14:50 | disposition home or self-care (01) ==
LOC: OR 08:48
PROVIDERS: ATTEND Otolaryngology
PROC: 07B20ZX Excision of Left Neck Lymphatic, Open Approach, Diagnostic (ICD-10-PCS; 2023-04-27)
PROC: 0HX4XZZ Transfer Neck Skin, External Approach (ICD-10-PCS; principal; 2023-04-27 10:15)
DX: C44.42 Squamous cell carcinoma of skin of scalp and neck (principal)
CPT/HCPCS: 93005; 88331; 88332; 88305; 14040; 38500; J2704; J2001; J3010; J2405; J7120

== ENCOUNTER 2023-07-17 05:43 | Day surgery (SDC) | payer OTHER, MEDICARE ==
[2023-07-09 11:51] LABS: Absolute Lymphocytes (CBC) 1.6 K/uL (0.7-4.9); Hematocrit 38.1 % (39.6-49.0); Lymphocytes % 19.5 % (15.3-44.8); MCV 89.2 fL (80-100); MPV 8.1 fL (7.6-11.3); Platelets 238 thou/uL (152-406); RBC Red Blood Cell Count 4.27 M/uL (4.33-5.43)
--- NOTE | 2023-07-09 11:52 | RAD REPORT ---
EXAM DESCRIPTION: RAD - Chest Pa And Lat (2 Views) - 07/09/2023 11:43 am CLINICAL HISTORY: Pre op pending urolift/Spaceoar gel insertion Chest pain. COMPARISON: Chest Pa And Lat (2 Views) dated 01/05/2022; Chest Pa And Lat (2 Views) dated 09/08/2021; C hest Single View dated 07/25/2021; CHEST SINGLE VIEW dated 12/03/2013 TECHNIQUE: PA and lateral views of the chest were obtained. FINDINGS: The lungs are hyperexpanded compatible with COPD. The heart is upper limit of normal in si ze. No fracture or aggressive bony process. IMPRESSION: COPD without acute process identified.
[2023-07-09 11:53] LABS: Protime INR 1.09
[2023-07-09 12:05] LABS: Potassium 3.2 mEq/L (3.5-5.1)
[2023-07-17] MEDS ORDERED: Ringers Lactate 1,000 ML IV ONE (06:25)
[2023-07-17] MEDS ORDERED: SUGAMMADEX SODIUM 200 MG/2 ML VIAL IV ONE (07:24)
[2023-07-17] MEDS ORDERED: SUCCINYLCHOLINE 20 MG/ML (10 ML) IV ONE (07:24)
[2023-07-17] MEDS ORDERED: propofoL 200 MG/20 ML VIAL IV ONE (07:25)
[2023-07-17] MEDS ORDERED: LIDOCAINE 1% MPF 5 ML VIAL ONE (07:25)
[2023-07-17] MEDS ORDERED: FENTANYL CITR 100 MCG/2 ML ONE (07:25)
[2023-07-17] MEDS: CEFAZOLIN SODIUM 2 GM/VIAL ONE ×2 (07:32→07:38)
[2023-07-17] MEDS ORDERED: CODEINE 30MG/APAP 300MG TAB PO PRN (07:36)
[2023-07-17] MEDS ORDERED: ONDANSETRON 4 MG/2 ML VIAL ONE (07:53)
[2023-07-17] MEDS ORDERED: dexAMETHasone 10 MG/ML VIAL ONE (07:53)
[2023-07-17] MEDS ORDERED: EPHEDRINE SULF 50 MG/ML VIAL ONE (07:54)
[2023-07-17 08:58] VITALS: O2SAT 92
[2023-07-17 10:04] VITALS: BP 146/55; TEMP 97.3
--- NOTE | 2023-07-18 08:14 | OP ---
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 2.Benign prostatic hypertrophy with lower urinary tract obstruction and symptoms. 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 2.Benign prostatic hypertrophy with lower urinary tract obstruction and symptoms. 3.Meatal stenosis. Principal Procedures: 1.Transrectal ultrasound-guided SpaceOAR gel insertion. 2.Prostatic urethral lift/UroLift with 7 implants placed. 3.Meatal dilation using sounds. Indication For Procedure: Mr. West is an 82-year-old gentleman, former patient of dustin Vizcarra s post prostate biopsy in 2017 revealing [place] 3+3 adenocarcinoma of the prostate in 5 cores with P SA that declined from 12 down to 8.8 on finasteride, but subsequently began to rise, ultimately to 11 .1 as of 01/22/2023. Repeat PSA returned 9.74, and adjusted for use of the finasteride, his actual P SA was likely closer to 20. As a result, because he had intermediate risk bordering on high risk pro state cancer, he was counseled on the potential benefit to surgical therapy to manage his obstruction and radiation therapy to manage the prostate cancer. He elected to proceed with radiation therapy, and was a reasonable candidate for the UroLift to relieve his obstructive symptoms. Procedure In Detail: The patient was consented in the preoperative holding area before being transfe rred to the operative suite where general anesthesia was induced. He was initially placed in the hig h lithotomy position, padded and secured to the table appropriately. Ancef 2 g was given for IV anti microbial prophylaxis, and pneumoboots were provided for DVT prophylaxis. His genitalia were elevate d out of the perineal region using an Ioban drape, and his perineal area was prepped with Betadine. The SpaceOAR needle was then inserted via his perineal midline under ultrasound guidance into the spa ce in the prerectal fat beneath the Denonvilliers fascia. Of note, the transrectal ultrasound probe had been placed via his anus into his rectum with ease prior to prepping the perineum with Betadine, and the prostate was visualized in its entirety from apex and perineal region to the base and seminal vesicles. As a result, having used the ultrasound to guide the needle through the perineal region a nd through the urogenital diaphragm appropriately into the mid zone of the prostate from retirement the distance from the apex to the base, I then aspirated and received no blood. I then hydrodissected an d the tissue did evenly distribute itself within the prerectal fat plane. As a result, we then switc hed the saline injection syringe with the SpaceOAR gel component, and then under direct visualization with ultrasound, I injected the SpaceOAR gel and observed it create a nice space between the base of the prostate and the rectum, though the majority of the gel did seem to fall off to the right latera l side of the prostate. There was still significant space created on the left side. As a result, I removed the needle and the patient was then taken out of the high lithotomy position and repositioned in standard lithotomy. His genitalia were prepped with Hibiclens and he was draped in standard [facility] ion in preparation for the UroLift. The case was then begun using a 20-Maori UroLift obturator and sheath to attempt to enter the meatus, but it was thwarted due to the presence of meatal stenosis. S o, I thus utilized urethral sounds to dilate his meatus and fossa navicularis to 26-Maori before the n reinserting the 20-Maori UroLift visual obturator and sheath via his urethra and into his bladder with ease. The prostate was noted to have significant interdigitating lateral lobar hypertrophy, but no significant elevated median bar or intravesically projecting median lobe. There was some intrave sical projection of the lateral lobes. As a result, I then switched the visual obturator for a UroLi ft implant and delivery device and first targeted the left side of the prostate at the base of the bl adder at around the 1 to 2 o'clock position. I advanced the scope to about 2 cm distal to the bladde r neck and angled the scope about 15 degrees laterally before pulling the trigger and delivering the needle through the substance of the prostate. I then angled it an additional 15-20 degrees, dropping my hand to elevate the tissue before pulling the trigger a second time and partially retracting the needle and leaving the capsular tab. A third pull of the trigger did completely retract the needle a nd I then advanced the scope back toward the midline and 2-3 mm toward the bladder neck until the whi te line of the monofilament was centered in the delivery bay. I then pulled the trigger a fourth reva e, tailoring the suture and applying the urethral end piece, which did invaginate nicely into the sub stance of the prostate with a nice rim of prostate tissue between the implant and the entry into his bladder. Having placed that implant nicely, I then turned my attention to the patient's right side a fter advancing the scope back into the bladder and switching for a new implant. I placed a similar i mplant on the right side, but this time with more of an upward angle to the placement of the implant in order to lift and lateralize a more significant degree of lateral to median lobar projection, I pl aced a second implant on the right side between the 10 and 11 o'clock position. This was placed appr oximately 2 cm distal to the bladder neck and did create a beautiful opening at the bladder neck. I then placed 2 additional implants at the apex of the prostate on the left than on the right directly at the level of the verumontanum, which created a beautiful opening at the apex. I thus surveyed the channel created using a visual obturator, and there was still significant tissue in the mid zone of the prostate; so I placed an implant into that tissue on the left side of the prostate before placing a similar implant on the right side of the prostate. I then surveyed the channel again created and while there was a nice continuous channel, there was still a slight degree of intraluminal bulging th at was mostly emanating from the patient's right side in some tissue between the mid apical implant a nd the base of the prostate and bladder neck implant. As a result, to create a more durable long-ter m affect, I utilized a seventh implant on the patient's right side between the mid zone of the prosta te and the base of the prostate at the bladder neck and created a beautiful continuous channel with n o significant obstructing tissue observed. As a result, with no significant ongoing hematuria, I ref illed his bladder and placed an 18-Maori coude catheter into his bladder with ease. I placed 15 cc of sterile water in the balloon, and the patient was then taken out of the lithotomy position. He wa s then awakened from general anesthesia, transferred to a stretcher, and then transferred to the [facility] very room in good condition. Complications: None. Discharge Disposition: He should plan to initiate radiation therapy with Dr. Delgadillo no sooner than 3 weeks from the date of surgery, and he should follow up with me per routine in about 1 month. MADELINE/BLAKE Voice ID: [id number] Report ID: [id number]
== END 2023-07-17 10:34 | disposition home or self-care (01) ==
LOC: OR 05:43
PROVIDERS: ATTEND Urology
PROC: 0T7D8DZ Dilation of Urethra with Intraluminal Device, Via Natural or Artificial Opening Endoscopic (ICD-10-PCS; principal; 2023-07-17 07:30)
PROC: 0VH43YZ Insertion of Other Device into Prostate and Seminal Vesicles, Percutaneous Approach (ICD-10-PCS; 2023-07-17 07:30)
DX: C61 Malignant neoplasm of prostate (principal); N40.1 Benign prostatic hyperplasia with lower urinary tract symptoms; N13.8 Other obstructive and reflux uropathy; I10 Essential (primary) hypertension; K21.9 Gastro-esophageal reflux disease without esophagitis; E78.00 Pure hypercholesterolemia, unspecified
CPT/HCPCS: 87088; 85025; 87086; 80048; 36415; 85610; 71046; 52441; 52442 ×6; 55874; J2704; J2001; J3010; J1100; J2405; J7120